=== PATIENT | female | born 1950 | race Caucasian/White ===

== ENCOUNTER → 2023-04-01 | Outpatient (CLI) | payer MEDICARE ==
--- NOTE | 2023-04-01 13:40 | XR ---
EXAMINATION TYPE: XR Hip Complete LT DATE OF EXAM: 04/01/2023 COMPARISON: NONE HISTORY: Pain TECHNIQUE: 2 views submitted FINDINGS: There is no evidence of erosive change or acute fracture. Calcifications in the pelvis appear vascular. There is hypertrophic change of the acetabulum. IMPRESSION: 1. No evidence of acute fracture or dislocation. Acetabular hypertrophy can be associated with femora l acetabular impingement.
== END | disposition home or self-care (01) ==
LOC: RADXRMAIN 12:30
PROVIDERS: ATTEND Internal Medicine
DX: M70.72 Other bursitis of hip, left hip (principal)
CPT/HCPCS: 73502

== ENCOUNTER → 2024-12-23 | Outpatient (CLI) | payer MEDICARE ==
--- NOTE | 2024-12-23 14:27 | XR ---
EXAMINATION TYPE: XR toes LT, XR foot complete 3 views LT DATE OF EXAM: 12/23/2024 2:04 PM COMPARISON: 12/23/2024 CLINICAL INDICATION: Female, 74 years old with history of M79.672 PAIN IN LEFT FOOT; PHH, pain TECHNIQUE: Coned-down 3 views of the first through fourth toes. Additional 3 views left foot. FINDINGS: Hallux valgus with bunion. Os peroneum. Degenerative changes first metatarsal sesamoid joint. Small p lantar heel spur. No acute fracture, subluxation, dislocation is seen. COMBINED IMPRESSION: Hallux valgus deformity with bunion. Degenerative change first metatarsal sesamoid joint. Small plant ar heel spur. No acute osseous abnormality seen. [facility], Workstation: [facility], 12/23/2024 2:25 PM
== END | disposition home or self-care (01) ==
LOC: RADXRMAIN 13:19
PROVIDERS: ATTEND Internal Medicine Geriatric Medicine
DX: M20.12 Hallux valgus (acquired), left foot (principal)

== ENCOUNTER 2025-01-07 07:19 | Day surgery (SDC) | payer MEDICARE ==
[2025-01-06 09:16] VITALS: BMI 26.1
[2025-01-07] MEDS: IV FLUID CONTINUATION 1,000 ML IV ONE (07:34)
[2025-01-07 07:53] LABS: Glucose,Whole Blood 146 mg/dL (70-110)
[2025-01-07 07:54] VITALS: TEMP 96.8
[2025-01-07] MEDS ORDERED: LACTATED RINGERS 1,000 ML IV SCH (07:59)
[2025-01-07] MEDS ORDERED: PROPOFOL 10 MG/ML 20 ML VIAL IV ONE (08:42)
--- NOTE | 2025-01-07 08:55 | P.PCN ---
Date of Procedure: 01/07/25 Procedure(s) Performed: BRIEF HISTORY: Patient is a 74-year-old pleasant white female scheduled for an elective colonoscopy as a part of screening for colon cancer. She had history of right hemicolectomy for large colon polyps 6 years ago in [place], [place] PROCEDURE PERFORMED: Colonoscopy with biopsy and cold snare polypectomy. PREOPERATIVE DIAGNOSIS: Screening for history of colon polyps. IV sedation per Anesthesia. PROCEDURE: After informed consent was obtained, the patient, was brought into the endoscopy unit. IV sedation was administered by Anesthesia under continuous monitoring. Digital rectal examination was normal. Initially the Olympus CF-160 flexible video colonoscope was then inserted in the rectum, gradually advanced into the right colon with ileocolic anastomosis visualized appeared normal. Prep was excellent. In the transverse colon there was a 3 mm polyp that was removed by cold biopsy. Rest of the, transverse colon, descending colon, sigmoid colon, and rectum appeared normal. In the proximal rectum there was a 6 mm polyp removed by cold snare polypectomy. Scattered sigmoid diverticulosis seen. Retroflexion was performed in the rectum and no lesions were seen. The patient tolerated the procedure well. IMPRESSION: 3 mm transverse colon polyp status post cold biopsy 6 mm proximal rectal polyp status post cold snare polypectomy Scattered sigmoid diverticulosis Normal-appearing right-sided ileocolic anastomosis RECOMMENDATIONS: Findings of this examination were discussed with the patient as well as her family.. She was advised to follow-up with the biopsy results. If the biopsy reveals adenoma she can have repeat colonoscopy in 5 years.
[2025-01-07 09:22] VITALS: BP 138/83; PULSE 68; RESP 18
== END 2025-01-07 09:37 | disposition home or self-care (01) ==
LOC: ORWHC2ENDO 07:19
PROVIDERS: ATTEND Internal Medicine Gastroenterology
DX: Z12.11 Encounter for screening for malignant neoplasm of colon (principal); D12.3 Benign neoplasm of transverse colon; K57.30 Diverticulosis of large intestine without perforation or abscess without bleeding; K62.1 Rectal polyp; I10 Essential (primary) hypertension; E78.5 Hyperlipidemia, unspecified; E11.9 Type 2 diabetes mellitus without complications; I48.91 Unspecified atrial fibrillation; Z79.51 Long term (current) use of inhaled steroids; Z86.0100 Personal history of colon polyps, unspecified; Z90.49 Acquired absence of other specified parts of digestive tract; Z79.899 Other long term (current) drug therapy
CPT/HCPCS: 88305; 45385; 45380; J2704